=== PATIENT | female | born 1990 | race Caucasian/White ===

== ENCOUNTER 2016-12-05 22:33 | Emergency (ER) | payer BC, OTHER ==
[~2016-12-05] VITALS: Ht 154.9 cm; Wt 47.6 kg
[2016-12-05] MEDS ORDERED: PRD20T PO (23:22)
--- NOTE | 2016-12-05 23:22 | ED Neurological Problem ---
General Chief Complaint: General Problems/Pain Stated Complaint: CP,L SIDE NUMBNESS Nursing Triage Note: Patient reports L arm pain and numbness starting about 1200 while sitting at work. patient reports that pain has progressed up arm to shoulder and arm pit. reports just getting done working out Nursing Sepsis Screen: No Definite Risk Source: patient Exam Limitations: no limitations History of Present Illness Time seen by provider: 23:02 Initial Comments This 26-year-old young lady presents to the emergency room with complaints of a numb sensation in the left upper extremity. It started around noon while she was sitting at work. She then did an aggressive work out this evening and symptoms worsened to include some pain in the left shoulder, left upper chest, and left upper back. She denies any neck pain. She has not experienced these symptoms for the past. She reports doing intense workouts daily. She reports the left upper extremity feels weak and heavy. However, there are no measurable neurologic deficits on assessment. Allergies and Home Medications Allergies Coded Allergies: No Known Drug Allergies (Unverified , 12/05/16) Home Medications Prednisone 20 Mg Tab #4 20 MG PO DAILY Prescribed by: MUKESH LONG on 12/05/16 [id number] Constitutional: no symptoms reported Eyes: No Symptoms Reported Ears, Nose, Mouth, Throat: no symptoms reported Respiratory: no symptoms reported Cardiovascular: no symptoms reported Gastrointestinal: no symptoms reported Genitourinary: no symptoms reported : No Musculoskeletal: see HPI Skin: no symptoms reported Psychiatric/Neurological: See HPI Endocrine: No Symptoms Reported Past [id number]-Xyjgjw-[id number] Hx Patient Social History Alcohol Use: Denies Use Recreational Drug Use: No Smoking Status: Never a Smoker Recent Foreign Travel: No Contact w/Someone Who Travel: No Recent Infectious Disease Expo: No Recent Hopitalizations: No Physical Abuse Screen: No Sexual Abuse: No Surgeries HX Surgeries: Yes Surgeries: Orthopedic (ganglion cyst resection from right hand) Respiratory Hx Respiratory Disorders: No Cardiovascular Hx Cardiac Disorders: No Neurological Hx Neurological Disorders: No Reproductive System Hx Reproductive Disorders: No Sexually Transmitted Disease: No Genitourinary Hx Genitourinary Disorders: No Gastrointestinal Hx Gastrointestinal Disorders: No Musculoskeletal Hx Musculoskeletal Disorders: No Endocrine Hx Endocrine Disorders: No HEENT HX ENT Disorders: No Cancer Hx Cancer: No Psychosocial Hx Psychiatric Problems: No Integumentary HX Skin/Integumentary Disorder: No Blood Transfusions Hx Blood Disorders: No Family Medical History Significant Family History: Heart Disease, Cancer Physical Exam Vital Signs Vital Sign - Last 12Hours 12/05/16 12/05/16 22:36 23:31 Temp 98.1 Pulse 69 Resp 20 B/P 136/84 Pulse Ox 100 O2 Delivery Room Air Capillary Refill : Less Than 3 Seconds General Appearance: WD/WN no apparent distress HEENT: PERRL/EOMI normal ENT inspection Neck: non-tender full range of motion supple normal inspection Respiratory: lungs clear normal breath sounds no respiratory distress no accessory muscle use other (tenderness of the left upper chest near the axilla) Cardiovascular: regular rate, rhythm no edema no murmur Peripheral Pulses: 2+ Radial Pulses (R), 2+ Radial Pulses (L) Gastrointestinal: normal bowel sounds non tender soft Back: normal inspection no vertebral tenderness other (tenderness medial to the left scapula) Extremities: non-tender normal inspection no pedal edema Neurologic/Psychiatric: seat cover cutter II-XII nml as tested no motor/sensory deficits alert normal mood/affect oriented x 3 Crainal Nerves: normal hearing normal speech PERRL Coordination/Gait: normal finger to nose normal gait Motor/Sensory: no motor deficit no sensory deficit Skin: normal color warm/dry Progress/Results/Core Measures Results/Orders My Orders Orders-MUKESH BRONSON MD Ekg Tracing (12/05/16 23:27) Vital Signs/I&O Vital Sign - Last 12Hours 12/05/16 12/05/16 22:36 23:31 Temp 98.1 Pulse 69 64 Resp 20 20 B/P 136/84 Pulse Ox 100 99 O2 Delivery Room Air Blood Pressure Mean: 101 Progress Note : Progress Note No neurological deficits could be found on exam. Differential diagnoses were discussed with patient. She was made aware that causes such as stroke, brain tumor, etc. could not be ruled out emergency room without imaging. She is now 11 hours past onset of symptoms. Symptoms are felt to be likely secondary to cervical radiculopathy. Patient would like to forego imaging at this time and try conservative therapy with NSAIDs and prednisone. She understands that she should return to the ER if symptoms worsen and follow up with her primary care provider soon as possible. ECG Initial ECG Impression Date: Dec 05, 2016 Initial ECG Impression Time: 22:38 Initial ECG Rate: 61 Initial ECG Rhythm: Normal Sinus Initial ECG Intervals: Normal Initial ECG Impression: Normal Comment Normal sinus rhythm with no ST elevation or depression. No abnormal intervals or axis deviation. Departure Impression Impression: Primary Impression: Paresthesia of left upper extremity Additional Impressions: Left shoulder pain Qualified Code: M25.512 - Pain in left shoulder Chest wall pain Disposition: HOME, SELF-CARE Condition: Stable Departure-Patient Inst. Decision time for Depature: 23:18 Referrals: UNKNOWN (PCP/Family) Primary Care Physician Patient Instructions: Paresthesias (DC) Add. Discharge Instructions: You may take ibuprofen 400 mg every 4 hours as needed for pain or inflammation. Add Tylenol up to 650 mg every 4 hours as needed for additional pain relief. If symptoms have not resolved by morning, fill the prednisone prescription. Follow-up with your primary care provider soon as possible. Return to emergency room if symptoms worsen. Physical rest should be observed until symptoms resolve. All discharge instructions reviewed with patient and/or family. Voiced understanding. Scripts Prednisone 20 Mg Tab20 Mg PO DAILY #4 TAB Prov:MUKESH BRONSON MD 12/05/16 MUKESH BRONSON MD Dec 05, 2016 23:22
[2016-12-05 23:31] VITALS: BP 128/76
== END 2016-12-05 23:31 | disposition home or self-care (01) ==
LOC: ER 22:35
DX: R20.2 Paresthesia of skin (principal); M25.512 Pain in left shoulder; R07.89 Other chest pain
CPT/HCPCS: 93005

== ENCOUNTER → 2018-01-12 | Outpatient (CLI) | payer BC ==
[~2018-01-12] MED LIST: PRD20T PO
== END ==
LOC: CARD 13:39
PROVIDERS: ATTEND Nurse Practitioner Family
DX: R01.1 Cardiac murmur, unspecified (principal)
CPT/HCPCS: 93306